=== PATIENT | male | born 1955 | race Caucasian/White ===

== ENCOUNTER → 2017-03-21 | Outpatient (CLI) | payer BC | LOC: BRMIMAGING 11:07 | PROVIDERS: ATTEND Registered Nurse | DX: M47.896 Other spondylosis, lumbar region (principal); M46.96 Unspecified inflammatory spondylopathy, lumbar region; M46.97 Unspecified inflammatory spondylopathy, lumbosacral region; M41.86 Other forms of scoliosis, lumbar region | CPT/HCPCS: 72100-PO; 73502-PO ==